=== PATIENT | male | born 1990 | race Two or more races ===

== ENCOUNTER 2017-02-07 17:48 | Emergency (ER) | payer MEDICAID ==
[~2017-02-07] VITALS: Ht 165.1 cm; Wt 49.9 kg
[2017-02-07] MEDS ORDERED: Norco 5mg/325mg tab ORAL ONE (18:30)
[2017-02-07] MEDS ORDERED: IBUPROFEN600 MG ORAL (18:55)
[2017-02-07] MEDS ORDERED: NORCO 5-325 TA1 EAC1 ORAL (18:55)
[2017-02-07 19:10] VITALS: BP 139/85
--- NOTE | 2017-02-07 20:49 | Emergency Room Report ---
History of Present Illness General Chief Complaint: Lower Extremity Injury Source: Patient (NOMAN VO) Present Illness HPI The patient is a 26-year-old male presenting for right ankle pain which began after jumping down from a tree today. Patient states that he felt his ankle buckled underneath him. Pain is described as an 8/10 dull ache and does not radiate from the ankle. Pain is worse with touch and walking. Patient denies any numbness or tingling. The patient denies previous injury to this ankle. He has not tried any medications. Patient denies any other symptoms including nausea, vomiting, fever, chills, rash, calf pain (NOMAN VO) Allergies: Coded Allergies: No Known Allergies (Unverified , 02/07/17) Patient History Past Medical History: see triage record Pertinent Family History: none Reviewed Nursing Documentation: PMH: Agreed, PSxH: Agreed (NOMAN VO) Nursing Documentation-PMH Past Medical History: No Stated History (NOMAN VO) Review of Systems All Other Systems: negative except mentioned in HPI (NOMAN VO.Keyshawn) Physical Exam Vital Signs Date Time Temp Pulse Resp B/P Pulse Ox O2 Delivery O2 Flow Rate FiO2 02/07/17 18:16 98.1 69 16 139/85 100 Room Air Sp02 EP Interpretation: reviewed, normal General Appearance: no apparent distress, alert, GCS 15, non-toxic Head: normocephalic, atraumatic Eyes: bilateral eye PERRL, bilateral eye normal inspection ENT: hearing grossly normal, normal pharynx, no angioedema, normal voice Musculoskeletal: back normal, no calf tenderness, decreased range of motion, swelling, tender - TTP over the medial and lateral ankle Neurologic: alert, oriented x3, responsive, motor strength/tone normal, sensory intact, speech normal Psychiatric: judgement/insight normal, memory normal, mood/affect normal, no suicidal/homicidal ideation Skin: normal color, no rash, warm/dry, well hydrated Lymphatic: no adenopathy (NOMAN VO) Procedures Splinting Splinting : Consent: Verbal Location: R ankle Hand-Made Type: plaster Splint: poserior short Pre-Proc Neuro Vasc Exam: normal Post-Proc Neuro Vasc Exam: normal Patient Tolerated: Well Complications: None (NOMAN VO) Medical Decision Making PA Attestation Dr. Ochoa is my supervising physician. Patient management was discussed with my supervising physician (NOMAN VO) Diagnostic Impression: Primary Impression: Ankle sprain Additional Impression: Ankle fracture, right ER Course The patient is a 26-year-old male presenting for right ankle pain Ddx considered include but not limited to sprain/strain, fracture, contusion, dislocation Physical exam: Vitals are within normal limits. No apparent distress Right ankle: There is 2+ nonpitting edema to lateral and medial malleoli. Limited active range of motion in all directions due to pain. Tenderness to palpation over bilateral malleoli. SILT X-ray of the ankle shows a lateral malleolus fracture and soft tissue swelling A right short leg and sugar tong splint is placed. Patient is given crutches and pain medication. Patient is to followup with PMD and also orthopedics as discussed. ER precautions are given (NOMAN VO) ER Course I evaluated this patient in the ED at [facility] with my advanced practice provider (Physician Division Human Resources Manager) colleague, who practices under my general supervision. My impressions concur with the advanced practice provider in regards to their obtained history of present illness, physical exam, general management, diagnosis, and disposition. In particular, I agree with PA-obtained interpretation of imaging, rhythm strip. For the evening and overnight shifts, we do not have the benefit of an in-house Radiologist to review xrays so our interpretation may be limited. Patients are to be discharged only with normal vital signs (or if we discussed a particular exception), a plan for follow-up care, and understand to return to the ED for worsening symptoms. Please see midlevel healthcare providers note for further details. (PATRICK OCHOA M.D.) Other X-Ray Diagnostic Results Other X-Ray Diagnostic Results : X-Ray Ordered: R ankle Date: Feb 07, 2017 EP Interpretation: Yes Findings: no dislocation, other - Fracture and STS Number of Views: 3 PA Scribe Text I am acting as scribe for my supervising physician. My supervising physician's interpretation of the Right ankle x-rays are there is a lateral malleolus fracture with soft tissue swelling (NOMAN VO) Last Vital Signs Date Time Temp Pulse Resp B/P Pulse Ox O2 Delivery O2 Flow Rate FiO2 02/07/17 19:10 98.1 16 139/85 100 Room Air 02/07/17 18:16 69 Status: improved (NOMAN VO) Disposition: HOME, SELF-CARE Condition: Improved Scripts Hydrocodone Bit/Acetaminophen 5-325* (NORCO 5-325 TABLET*) 1 Each Tablet 1 TAB ORAL Q6HR Y for For Pain, #10 TAB Prov: NOMAN VO.ATimi 02/07/17 Ibuprofen* (MOTRIN*) 600 Mg Tablet 600 MG ORAL Q8H Y for For Pain, #30 TAB 0 Refills Prov: NOMAN VO.ATimi 02/07/17 Referrals: NON PHYSICIAN (PCP) Patient Instructions: Ankle Sprain, Ankle Fracture, Cast or Splint Care Additional Instructions: I discussed my findings with the patient. All questions and concerns have been answered. Treatment and medication compliance have been addressed. I advised the patient that they need to follow up with PMD in 3-5 days. Return to ED if pain remains or worsens, numbness or tingling occurs, new rash is noticed, fever is noticed, or if needed for any reason. Patient verbalized understanding of discharge instructions. NOMAN VO Feb 07, 2017 20:48 PATRICK OCHOA M.D. Feb 09, 2017 20:55
--- NOTE | 2017-02-08 11:49 | Diagnostic Imaging Report ---
Indications: Fall, right ankle injury and pain Technique: 3 views right ankle Findings: Comparison: None Oblique fracture distal diaphysis and metaphysis right fibula at and above the level of ankle joint. Distal fragment demonstrates partial bone with dorsal displacement and mild angulation. Tibiotalar joint is mildly widened laterally, bursa distended. Bilateral soft tissue swelling. No dislocation, additional fracture or other acute change identified. IMPRESSION: Displaced fracture distal fibula with mild widening of ankle joint Medial soft tissue swelling suggests deltoid ligament injury. This may represent an unstable injury complex. Orthopedic consultation recommended.
== END 2017-02-07 20:15 | disposition home or self-care (01) ==
LOC: EMR 20:06
DX: S93.491A Sprain of other ligament of right ankle, initial encounter (principal); S82.491A Other fracture of shaft of right fibula, initial encounter for closed fracture; W14.XXXA Fall from tree, initial encounter; Y92.89 Other specified places as the place of occurrence of the external cause
CPT/HCPCS: 29515; 99284